=== PATIENT | female | born 1990 | race Asian ===

== ENCOUNTER 2019-06-12 03:25 | Observation (INO) | payer OTHER ==
[~2019-06-12] VITALS: Ht 162.6 cm; Wt 68.0 kg
[2019-06-12 04:31] VITALS: BP 106/70
== END 2019-06-12 04:15 | disposition home or self-care (01) ==
LOC: 4S 03:25
PROVIDERS: ADMIT Obstetrics & Gynecology; ATTEND Obstetrics & Gynecology
DX: O62.9 Abnormality of forces of labor, unspecified (principal); Z3A.21 21 weeks gestation of pregnancy